=== PATIENT | female | born 1955 | race African-American/Black ===

== ENCOUNTER 2016-07-05 12:23 | Emergency (ER) | payer MEDICARE, OTHER ==
[~2016-07-05] VITALS: Ht 165.1 cm; Wt 90.7 kg
[~2016-07-05 12:23] MED LIST: ALBUTEROL2.5 MG/3 M INH; ANUSOL-HC25 MG RECTAL; ASPIRIN81 MG ORAL; ATIVAN1 MG ORAL; BENADRYL25 MG ORAL; CALCIUM600 M1 PO; CATAPRES-TTS-21 EA TDERMAL; CATAPRES0.1 MG ORAL; CULTURELLE1 EACH ORAL; CYMBALTA20 MG ORAL; DILAUDID2 MG PO; DILAUDID4 MG ORAL; DRISDOL50000 UNIT ORAL; DUONEB 0.5-3(2.53 ML HHN; FLAGYL500 MG/100 IV; FLORANEX TABLE1 EAC1 PO; GUAIFENESIN-CO118 M1 ORAL; HEPARIN SO1000 UNIT3 SQ; HEPARIN SO5000 UNIT2 SUBQ; HYDRALAZINE HCL50 MG ORAL; HYDROCHLOROTHIA25 MG ORAL; HYDROCORTISONE25 MG RC; KCL2 MEQ/ML PO; LASIX40 MG ORAL; LEVAQUIN P IVPB; LISINOPRIL10 MG ORAL; LOPERAMIDE2 M1 PO; MEDROL DOSEPAK4 MG ORAL; NEURONTIN300 MG ORAL; NORCO 10/3251 EA ORAL; NORCO 5-325 TA1 EAC1 ORAL; NORVASC10 MG ORAL; PROAIR HFA8.5 GM INH; PROBIOTIC1 EAC2 PO; PROTONIX20 MG ORAL; ROBITUSSIN DM5 ML PO; SODIUM CHLORI1000 M1 IVLG; TUMS500 MG ORAL; TYLENOL650 MG/20. ORAL; VALIUM10 MG ORAL; VITAMIN C500 M1 ORAL; VITAMIN D250000 UNI1 ORAL; ZOFRAN 4 MG4 MG/2 ML IV; ZOFRAN8 MG ORAL
[2016-07-05 12:48] VITALS: BP 162/81
[2016-07-05] MEDS ORDERED: NORVASC2.5 MG ORAL (12:51)
[2016-07-05] MEDS ORDERED: Dicyclomine HCl 10mg/5ml oral soln ORAL ONE (13:00)
[2016-07-05] MEDS ORDERED: Ketorolac 30mg Inj IV ONE (13:00)
[2016-07-05 13:43] LABS: BASOPHILS % (AUTO) 0.5 % (0.0-2.0); EOSINOPHILS % (AUTO) 1.7 % (0.0-3.0); LYMPHOCYTES % (AUTO) 32.8 % (20.0-45.0); MEAN CORPUSCULAR HEMOGLOBIN 30.8 PG (27.0-31.0); MEAN CORPUSCULAR HGB CONC 32.5 G/DL (32.0-36.0); MEAN CORPUSCULAR VOLUME 95 FL (80-99); MEAN PLATELET VOLUME 9.6 FL (6.5-10.1); MONOCYTES % (AUTO) 4.4 % (1.0-10.0); NEUTROPHILS % (AUTO) 60.6 % (45.0-75.0); PLATELET COUNT 298 K/UL (150-450); RED BLOOD COUNT 4.19 M/UL (4.20-5.40); RED CELL DISTRIBUTION WIDTH 13.6 % (11.6-14.8); WHITE BLOOD COUNT 5.6 K/UL (4.8-10.8)
[2016-07-05 14:06] LABS: ALANINE AMINOTRANSFERASE 16 U/L (3-33); ALBUMIN/GLOBULIN RATIO 1.6 (1.0-2.7); ANION GAP 15 (5-15); ASPARTATE AMINO TRANSFERASE 13 U/L (5-40); CALCIUM 9.5 mg/dL (8.6-10.2); CARBON DIOXIDE 27 mEQ/L (20-30); CHLORIDE 99 mEQ/L (98-107); CREATININE 0.8 mg/dL (0.5-0.9); GLOMERULAR FILTRATION RATE > 60 mL/min (>60); HEMOLYSIS 5; LIPASE 28 U/L (< 60); POTASSIUM 3.9 mEQ/L (3.4-4.9); SODIUM 141 mEQ/L (135-145)
--- NOTE | 2016-07-05 14:37 | Emergency Room Report ---
History of Present Illness General Chief Complaint: Abdominal Pain Source: Patient, Medical Record (KIET BEDOYA M.D.) Present Illness HPI 61-year-old female presents to ED complaining of abdominal pain x3 months. Notes pain in the right lower quadrant, cramping, sharp, 10 out of 10, nonradiating. Notes multiple episodes of diarrhea or several months. Denies fevers or chills. Denies chest pain or shortness of breath. Denies recent antibiotic use. No other aggravating or relieving factors. Denies any other associated symptoms (KIET BEDOYA M.D.) Allergies: Coded Allergies: CODEINE (Unverified Allergy, Unknown, 11/25/13) ERYTHROMYCIN BASE (Unverified Allergy, Unknown, 11/25/13) SULFAMETHOXAZOLE (Unverified Allergy, Unknown, 11/25/13) TRIMETHOPRIM (Unverified Allergy, Unknown, 11/25/13) Patient History Past Medical History: DM, HTN, asthma, COPD Past Surgical History: none Pertinent Family History: none Social History: Denies: alcohol use, drug use, smoking Now: No Immunizations: UTD Reviewed Nursing Documentation: PMH: Agreed, PSxH: Agreed (KIET BEDOYA M.D.) Nursing Documentation-PMH Hx Cardiac Problems: Yes Hx Hypertension: Yes Hx Asthma: Yes Hx COPD: Yes Hx Diabetes: Yes - "borderline" Hx Cancer: No Hx Gastrointestinal Problems: Yes Hx Neurological Problems: Yes - Orthopedic "nerve dammage" Hx Peripheral Neuropathy: Yes Hx Numbness: Yes Hx Weakness: Yes (KIET BEDOYA M.D.) Review of Systems All Other Systems: negative except mentioned in HPI (KIET BEDOYA M.D.) Physical Exam Vital Signs Date Time Temp Pulse Resp B/P Pulse Ox O2 Delivery O2 Flow Rate FiO2 07/05/16 12:27 97.2 68 20 188/101 99 07/05/16 12:48 Room Air Sp02 EP Interpretation: reviewed, normal General Appearance: obese Head: normocephalic Eyes: bilateral eye PERRL, bilateral eye normal inspection ENT: normal ENT inspection Neck: normal inspection Respiratory: chest non-tender, lungs clear, normal breath sounds, speaking full sentences Cardiovascular #1: regular rate, rhythm, no edema Gastrointestinal: normal bowel sounds, soft, non-distended, no guarding, no rebound, tenderness - RLQ Rectal: deferred Genitourinary: no CVA tenderness Musculoskeletal: normal inspection Neurologic: alert, oriented x3, responsive, motor strength/tone normal, sensory intact, speech normal Psychiatric: normal inspection Skin: normal inspection Lymphatic: normal inspection (KIET BEDOYA M.D.) Medical Decision Making Diagnostic Impression: Primary Impression: Lung nodule Labs Test 07/05/16 13:13 White Blood Count 5.6 K/UL (4.8-10.8) Red Blood Count 4.19 M/UL (4.20-5.40) Hemoglobin 12.9 G/DL (12.0-16.0) Hematocrit 39.8 % (37.0-47.0) Mean Corpuscular Volume 95 FL (80-99) Mean Corpuscular Hemoglobin 30.8 PG (27.0-31.0) Mean Corpuscular Hemoglobin Concent 32.5 G/DL (32.0-36.0) Red Cell Distribution Width 13.6 % (11.6-14.8) Platelet Count 298 K/UL (150-450) Mean Platelet Volume 9.6 FL (6.5-10.1) Neutrophils (%) (Auto) 60.6 % (45.0-75.0) Lymphocytes (%) (Auto) 32.8 % (20.0-45.0) Monocytes (%) (Auto) 4.4 % (1.0-10.0) Eosinophils (%) (Auto) 1.7 % (0.0-3.0) Basophils (%) (Auto) 0.5 % (0.0-2.0) Sodium Level 141 mEQ/L (135-145) Potassium Level 3.9 mEQ/L (3.4-4.9) Chloride Level 99 mEQ/L (98-107) Carbon Dioxide Level 27 mEQ/L (20-30) Anion Gap 15 (5-15) Blood Urea Nitrogen 11 mg/dL (7-23) Creatinine 0.8 mg/dL (0.5-0.9) Estimat Glomerular Filtration Rate > 60 mL/min (>60) Glucose Level 106 mg/dL (74-106) Calcium Level 9.5 mg/dL (8.6-10.2) Total Bilirubin < 0.2 mg/dL (0.0-1.2) Aspartate Amino Transf (AST/SGOT) 13 U/L (5-40) Alanine Aminotransferase (ALT/SGPT) 16 U/L (3-33) Alkaline Phosphatase 110 U/L (35-104) Total Protein 7.0 g/dL (6.6-8.7) Albumin 4.4 g/dL (3.5-5.2) Globulin 2.6 g/dL Albumin/Globulin Ratio 1.6 (1.0-2.7) Lipase 28 U/L (< 60) (KIET BEDOYA M.D.) ER Course Dr Castaneda called 843am on 07/06 of incidental left lung base nodule seen on CT Abd. patient was discharged yesterday afternoon by Dr Bedoya Patient's PMD is Dr Devries - I texted Dr Devries of this finding at 844am. I also called patient and informed her of finding. Discussed at length on phone + smoking history She says she follows with Dr Devries and Dr Rebolledo. I answered all her questions. She verbalizes understanding of the incidental finding and importance of followup as an outpatient with her PMD. At 949am, Dr Sanchez responded that neither he nor Dr Rebolledo is patient's provider; he stated that Dr Rebolledo is not a known physician in his practice. Patient endorsed that these two physicians are her PMDs and she understands importance of followup either way, whether with them or any PMD. (NIRALI HORTON M.D.) Last Vital Signs Date Time Temp Pulse Resp B/P Pulse Ox O2 Delivery O2 Flow Rate FiO2 07/05/16 14:02 97.8 07/05/16 12:48 59 14 162/81 97 Room Air (KIET BEDOYA M.D.) Scripts Famotidine (PEPCID AC) 20 Mg Tablet 20 MG PO TWICE A DAY, #30 TAB Prov: Carlin Bustamante 07/05/16 Referrals: MAME DEVRIES (PCP) KIET BEDOYA M.D. Jul 05, 2016 14:37 NIRALI HORTON M.D. Jul 06, 2016 08:53
[2016-07-05 14:55] LABS: APPEARANCE,URINE CLEAR; KETONES,URINE NEGATIVE (NEGATIVE); NITRITE,URINE NEGATIVE (NEGATIVE); PH,URINE 6 (4.5-8.0); PROTEIN,URINE NEGATIVE (NEGATIVE)
[2016-07-05 14:56] LABS: LEUKOCYTE ESTERASE ,URINE NEGATIVE (NEGATIVE); UROBILINOGEN,URINE NORMAL MG/DL (0.0-1.0)
[2016-07-05 15:21] VITALS: BP 158/82
[2016-07-05] MEDS ORDERED: PEPCID AC20 M2 PO (16:26)
[2016-07-05 16:45] VITALS: BP_SYST 154; BP_SYST 158; BP_DIAS 79; BP_DIAS 82
--- NOTE | 2016-07-06 08:49 | Diagnostic Imaging Report ---
Clinical Indication: Right lower quadrant pain x3 months Technique: No oral contrast utilized, per emergency room physician request IV administration nonionic contrast. Venous phase spiral acquisition obtained through the abdomen and pelvis. Multiplanar reconstructions were generated. Total dose length product 957 mGycm. CTDIvol(s) the mGy Comparison: None Findings: There is colonic diverticulosis. No evidence of diverticulitis. The appendix is not visualized, the there are no findings to suggest acute appendicitis. No small bowel distention. There is equivocal minimal thickening of proximal jejunal loops. No free or loculated intraperitoneal air or fluid is evident. Liver is mildly enlarged. Gallbladder is nondistended. Bile ducts are nondilated. Pancreas, spleen, adrenals, kidneys are unremarkable. No retroperitoneal or mesenteric mass or adenopathy there is no pelvic mass or adenopathy. Uterus is absent, presumably postsurgically. The included lung bases demonstrate a 5 mm nodule on the left. There are degenerative changes of the lumbar spine Impression: Equivocal minimal thickening of proximal jejunal loops, could indicate very mild enteritis change, correlate with clinical findings No acute process otherwise Borderline hepatomegaly Evidence of prior hysterectomy This agrees with the preliminary interpretation provided overnight by Dr. Fraser 5 mm left lung base nodule. If there is significant smoking history or other risk factors for lung carcinoma, further followup with short-term followup chest CT in 6-12 months is recommended. If there is no significant smoking history, no further followup is necessary. This finding was not reported on the preliminary report, but was discussed with Dr. Marx in the emergency room at the time of interpretation The CT scanner at [facility] is accredited by the [employer] and the scans are performed using protocols designed to limit radiation exposure to as low as reasonably achievable to attain images of sufficient resolution adequate for diagnostic evaluation.
== END 2016-07-05 16:48 | disposition home or self-care (01) ==
LOC: EMR 13:48
DX: R91.1 Solitary pulmonary nodule (principal); Z88.6 Allergy status to analgesic agent; Z88.1 Allergy status to other antibiotic agents; Z88.2 Allergy status to sulfonamides; E11.9 Type 2 diabetes mellitus without complications; I10 Essential (primary) hypertension; J45.909 Unspecified asthma, uncomplicated; J44.9 Chronic obstructive pulmonary disease, unspecified; G62.9 Polyneuropathy, unspecified
CPT/HCPCS: 36415; 74177; 80053; 81003; 83690; 85025; 96374; 96375; 99284; J1885; Q9967